=== PATIENT | male | born 1985 | race Caucasian/White ===

== ENCOUNTER 2017-01-15 07:40 | Emergency (ER) | payer BC ==
[2017-01-15] MEDS ORDERED: Ketorolac 60 MG/2 ML SDV IM ONE (07:50)
--- NOTE | 2017-01-15 07:50 | EDM.PDOC ---
ED HPI GENERAL MEDICAL PROBLEM - General Chief Complaint: Lower Extremity Injury/Pain Stated Complaint: LEFT FOOT PAIN Time Seen by Provider: 01/15/17 07:45 - History of Present Illness INITIAL COMMENTS - FREE TEXT/NARRATIVE: HISTORY AND PHYSICAL: History of present illness: The patient is a 31-year-old male with a history of seizure disorder and chronic pain secondary to participating in the [employer] and who follows with Dr. Reece at [facility] and presents today with complaints of pain to the dorsal and lateral aspect of his left foot that started yesterday after he rolled his foot playing catch with his child. The patient states he has not taken anything for the pain and presents for evaluation of same. The patient states he did not fall to the ground hitting his head pass out and has no head neck or back pain that is new or different. He has no proximal knee or hip pain on the left. He has no neurovascular changes in the foot and he says that the ankle does not hurt it is solely the foot Review of systems: As per history of present illness and below otherwise all systems reviewed and negative. Past medical history: As per history of present illness and as reviewed below otherwise noncontributory. Surgical history: As per history of present illness and as reviewed below otherwise noncontributory. Social history: No reported history of drug or alcohol abuse. Family history: As per history of present illness and as reviewed below otherwise noncontributory. Physical exam: Gen.: Well-developed well-nourished man who is nontoxic and speaking in full sentences. HEENT: Atraumatic, normocephalic, negative for conjunctival pallor or scleral icterus, mucous membranes moist, throat clear, neck supple, nontender, trachea midline. Lungs: Clear to auscultation, breath sounds equal bilaterally, chest nontender. Heart: S1S2, regular rate and rhythm no overt murmurs Pelvis: Stable nontender. Genitourinary: Deferred. Rectal: Deferred. Extremities: Atraumatic appearing throughout with full range of motion with only some mild soft tissue swelling noted at the dorsal aspect slightly lateral on the left foot. There is no discrete metatarsal tenderness nor is there any ankle tenderness or swelling or proximal bony tenderness deformities in the tib- fib knee or hip. Toes are intact and neurovascular is intact. There is no ecchymosis or redness appreciated., negative for cords or calf pain. Neurovascular unremarkable. Neuro: Awake, alert, oriented. Cranial nerves II through XII unremarkable. Cerebellum unremarkable. Motor and sensory unremarkable throughout. Exam nonfocal. Diagnostics: X-ray left foot Therapeutics: Toradol crutches ortho boot These note the patient has chronic pain and pain medication at home that he can take and I told him to add ibuprofen ice and elevate Impression: Navicular bone fracture of the left foot Definitive disposition and diagnosis as appropriate pending reevaluation and review of above. Left Feet Pain Score (Numeric/FACES): 7 - Related Data Allergies Allergy/AdvReac Type Severity Reaction Status Date / Time No Known Allergies Allergy Verified 01/15/17 07:47 Home Meds: Home Meds Divalproex Sodium [Depakote] 500 mg PO BIDMEALS 01/15/17 [History] Hydrocodone/Acetaminophen [Hydrocodon-Acetaminophen 5-325] 1 each PO ASDIRECTED PRN 01/15/17 [History] Review of Systems - Review of Systems Review Of Systems: ROS reveals no pertinent complaints other than HPI. ED EXAM, GENERAL - Physical Exam Exam: See Below (See dictation) Course - Vital Signs Last Recorded V/S: Last Vital Signs Temp 36.4 C 01/15/17 07:50 Pulse 82 01/15/17 07:50 Resp 15 01/15/17 07:50 BP 124/77 01/15/17 07:50 Pulse Ox 97 01/15/17 07:50 - Orders/Labs/Meds Orders: Active Orders 24 hr Category Date Time Status Foot Comp Min 3V Lt [CR] Stat Exams 01/15/17 07:50 Taken DME for Discharge [COMM] Stat Oth 01/15/17 09:36 Ordered Meds: Medications Discontinued Medications Generic Name Dose Route Start Last Admin Trade Name Freq PRN Reason Stop Dose Admin Ketorolac Tromethamine 60 mg 01/15/17 07:50 01/15/17 08:06 Toradol IM 01/15/17 07:51 60 mg ONETIME ONE Administration Departure - Departure Time of Disposition: 09:37 Disposition: Home, Self-Care 01 Condition: Good Clinical Impression: Fracture of navicular bone of foot Qualifiers: Encounter type: initial encounter Fracture type: closed Fracture alignment: nondisplaced Laterality: left Qualified Code(s): S92.255A - Nondisplaced fracture of navicular [scaphoid] of left foot, initial encounter for closed fracture - Discharge Information Forms: ED Department Discharge Additional Instructions: The following information is given to patients seen in the emergency department who are being discharged to home. This information is to outline your options for follow-up care. We provide all patients seen in our emergency department with a follow-up referral. The need for follow-up, as well as the timing and circumstances, are variable depending upon the specifics of your emergency department visit. If you don't have a primary care physician on staff, we will provide you with a referral. We always advise you to contact your personal physician following an emergency department visit to inform them of the circumstance of the visit and for follow-up with them and/or the need for any referrals to a consulting specialist. The emergency department will also refer you to a specialist when appropriate. This referral assures that you have the opportunity for followup care with a specialist. All of these measure are taken in an effort to provide you with optimal care, which includes your followup. Under all circumstances we always encourage you to contact your private physician who remains a resource for coordinating your care. When calling for followup care, please make the office aware that this follow-up is from your recent emergency room visit. If for any reason you are refused follow-up, please contact the [facility] emergency department at and ask to speak to the emergency department charge nurse. [address] [place] [address] Dr Stan Arias [address] [place] [address] [id number] [facility] Specialty clinic- Podiatry [address] [place] [id number] Fax: [phone] Please call and schedule a follow-up appointment with one of our podiatrists and use crutches and ortho boot as shown. Try not to weight-bear until you're followed up by the water jet operator. Use your pain medication as needed and add ibuprofen/Motrin for inflammation. Use ice and elevate the foot. Return here as needed and as discussed. Also schedule and follow-up with your primary Dr. Reece at [facility] - My Orders Last 24 Hours: My Active Orders 01/15/17 07:50 Foot Comp Min 3V Lt [CR] Stat 01/15/17 09:36 DME for Discharge [COMM] Stat - Assessment/Plan Last 24 Hours: My Active Orders 01/15/17 07:50 Foot Comp Min 3V Lt [CR] Stat 01/15/17 09:36 DME for Discharge [COMM] Stat
[2017-01-15 10:01] VITALS: BP 122/81
--- NOTE | 2017-01-15 17:43 | CR ---
EXAM DATE: 01/15/17 PATIENT'S AGE: 31 Patient: EZEKIEL CRENSHAW Facility: [place], [place] Site . Site : 1985 Study: XRay Extremity Left [id number]/16/2017 8:39:57 AM Ordering Physician: [facility] Weinstein Final Report: HISTORY: Trauma, stepped in hole. FINDINGS: Three views of the left foot demonstrates a traction spur on the left aspect of the calcaneus. There is a nondisplaced fracture seen through the medial aspect of the navicular. This does appear to involve the distal articular surface. Metatarsals appear intact. IMPRESSION: Nondisplaced intra-articular fracture of the medial navicular. Dictated by Sonal Fuentes MD @ 01/15/2017 9:05:09 AM Dictated by: Sonal Fuentes MD @ 01/15/2017 09:05:14 (Electronic Signature) Report Signed by Proxy. SATISH
== END 2017-01-15 09:56 | disposition home or self-care (01) ==
LOC: MW.ED 07:40
DX: S92.255A Nondisplaced fracture of navicular [scaphoid] of left foot, initial encounter for closed fracture (principal); G40.909 Epilepsy, unspecified, not intractable, without status epilepticus; X58.XXXA Exposure to other specified factors, initial encounter; Y93.61 Activity, american tackle football
CPT/HCPCS: 73630; 96372; 99283; J1885

== ENCOUNTER 2017-09-07 20:01 | Observation (INO) | payer BC ==
[2017-09-07] MEDS ORDERED: Sodium Chloride 0.9% 1,000 ML IV ONE (20:03)
[2017-09-07] MEDS ORDERED: Sodium Chloride 0.9% 2.5 ML Syringe FLUSH PRN (20:04)
[2017-09-07] MEDS ORDERED: Sodium Chloride 0.9% 10 ML Syringe FLUSH PRN (20:04)
[2017-09-07] MEDS ORDERED: LORazepam 2 MG/ML SDV IVPUSH ONE (20:04)
[2017-09-07] MEDS ORDERED: Valproate Sodium 500 MG/5 ML SDV IV ONE (20:10)
[2017-09-07] MEDS ORDERED: Diphtheria,Pertussis(Acell),Tetanus Vaccine 0.5 ML Syringe IM ONE (20:13)
--- NOTE | 2017-09-07 20:13 | EDM.PDOC ---
ED HPI GENERAL MEDICAL PROBLEM - General Chief Complaint: Neuro Symptoms/Deficits Stated Complaint: AMB Time Seen by Provider: 09/07/17 20:02 - History of Present Illness INITIAL COMMENTS - FREE TEXT/NARRATIVE: HISTORY AND PHYSICAL: History of present illness: Patient is a 32-year-old male who prevents EMS after having 4 seizures today each lasting less than a minute with a known history of seizure disorder. According to the friends at bedside the patient has not been able to access his medications because he broke up with his girlfriend and she has kept all of his meds and will not give them to him for the last 1 week. EMS witnessed one of these 4 seizures which lasted about 45 seconds and the patient has had trauma with these seizures because he has an injury to his for head. According to friends at bedside he chews tobacco he drinks only occasionally and did not drink today and had no systemic complaints earlier today. All procedures have occurred within a short period of time this evening. Patient did not complain of any nausea vomiting abdominal pain chest pain or shortness of breath before this all started. On arrival via EMS the patient has IV access but was not given any medications as he was very calm on their transfer but here he is somewhat agitated and post ictal. He is responding to voice and can be redirected area patient is moving all extremities and currently has no complaints. We do not know all of the patient's medications but the friend states that he does take Depakote and in the computer he has been here before with the Depakote history. His seizures are not new Review of systems: As per history of present illness and below otherwise all systems reviewed and negative. Past medical history: As per history of present illness and as reviewed below otherwise noncontributory. Surgical history: As per history of present illness and as reviewed below otherwise noncontributory. Social history: No reported history of drug or alcohol abuse. Family history: As per history of present illness and as reviewed below otherwise noncontributory. Physical exam: Gen.: Well developed well-nourished male who is intermittently agitated and can be redirected and response to voice. He is moving all extremities. There is no visible loss of bowel or bladder HEENT: normocephalic, pupils reactive, sclera are injected, there is a raised soft tissue swelling on the midforehead near the hairline with 2 superficial lacerations seen each measuring approximately 1.5 cm in their vertical. Tissue in this area is very contused. He is negative for conjunctival pallor or scleral icterus, mucous membranes moist, throat clear, neck supple, nontender, trachea midline. There are no palpable deformities midline step-offs or tenderness of the C-spine. There is bruising to the tongue bilaterally without any active bleeding in the teeth appear to be intact. Other than the for head injury there is no other soft tissue swelling of the facial bones. There is clotted nasal blood seen. Lungs: Clear to auscultation, breath sounds equal bilaterally, chest nontender. Heart: S1S2, regular, negative for clicks, rubs, or JVD. Abdomen: Soft, nondistended, nontender. Negative for masses or hepatosplenomegaly. Negative for costovertebral tenderness. Pelvis: Stable nontender. Genitourinary: Deferred. Rectal: Deferred. Extremities: Atraumatic, negative for cords or calf pain. Neurovascular unremarkable. No visible or palpable bony deformities defects or swelling and the patient has full range of motion Neuro: Awake, alert, but full exam is difficult to assess due to patient's lack of complete cooperation Motor and sensory unremarkable throughout. Exam nonfocal. Neck: There are no midline step-offs or defects appreciated on the thoracic or lumbar spine and no soft tissue swelling ecchymosis or trauma is visualized Diagnostics: CBC CMP EtOH level UA UDS magnesium level Depakote level CT of the head Therapeutics: Tdap, Ativan IV fluids Depakote wound care These note that the girlfriend has arrived in the ED and was somewhat disorderly in the waiting room and police were notified. According to the police conversation with the girlfriend the patient has not been taking his medications for quite some time, several months. She brings his Depakote prescription which was filled on May 13, 2017 and the initial dispense amount was 120 pills and there are 100 left. The patient is supposed to be taking 2 tablets twice a day. 2100: TESTING results were discussed with the patient and friends at bedside and the patient has yet to give a urine sample for UA and UDS. I've also discussed this case with our hospitalist Dr. Conteh who accepts the patient for observation admission as he truly only has the friends at bedside and no other family members. I will contact his mother who is out of state and just inform her of what's going on. Dr. Conteh said he will address prophylactic antibiotics on the floor once the patient is more awake for the fluid in the sinuses. Impression: Multiple seizures with medication noncompliance, fracture of sinuses status post blunt facial trauma stable Definitive disposition and diagnosis as appropriate pending reevaluation and review of above. 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) - Infectious Disease History Infectious Disease History: Reports: Chicken Pox - Past Surgical History Neurological Surgical History: Reports: Other (See Below) Other Neurological Surgeries/Procedures: Brain surgery for a bleed - titanium plates and screws intact Musculoskeletal Surgical History: Reports: None Social & Family History - Family History Family Medical History: Noncontributory - Tobacco Use Smoking Status *Q: Never Smoker Second Hand Smoke Exposure: No - Caffeine Use Caffeine Use: Reports: Tea - Alcohol Use Days Per Week of Alcohol Use: 0 - Recreational Drug Use Recreational Drug Use: No ED ROS GENERAL - Review of Systems Review Of Systems: ROS reveals no pertinent complaints other than HPI. ED EXAM, GENERAL - Physical Exam Exam: See Below (see dictation) Course - Vital Signs Last Recorded V/S: Last Vital Signs Temp 36.6 C 09/07/17 20:01 Pulse 123 H 09/07/17 20:01 Resp 26 H 09/07/17 20:01 BP 143/94 H 09/07/17 20:01 Pulse Ox 97 09/07/17 20:01 - Orders/Labs/Meds Orders: Active Orders 24 hr Category Date Time Status Cardiac Monitoring [RC] . DIRECTED Care 09/07/17 20:02 Active Communication Order [RC] STAT Care 09/07/17 20:03 Active Oxygen Therapy, ED [RC] ASDIRECTED Care 09/07/17 20:02 Active Pulse Oximetry [RC] ASDIRECTED Care 09/07/17 20:02 Active Vaccines to be Administered [RC] PER UNIT ROUTINE Care 09/07/17 20:13 Active Head wo Cont [CT] Stat Exams 09/07/17 20:03 Taken DRUG SCREEN, URINE [URCHEM] Stat Lab 09/07/17 20:03 Uncollected UA W/MICROSCOPIC [URIN] Stat Lab 09/07/17 20:03 Uncollected Sodium Chloride 0.9% [Normal Saline] 1,000 ml Med 09/07/17 20:03 Active IV STAT Sodium Chloride 0.9% [Saline Flush] Med 09/07/17 20:04 Active 10 ml FLUSH ASDIRECTED PRN Sodium Chloride 0.9% [Saline Flush] Med 09/07/17 20:04 Active 2.5 ml FLUSH ASDIRECTED PRN Valproate Sodium [Depacon] 1,000 mg Med 09/07/17 20:15 Active Sodium Chloride 0.9% [Normal Saline] 50 ml IV ONETIME Saline Lock Insert [OM.PC] Stat Oth 09/07/17 20:02 Ordered Medication Orders Sodium Chloride (Normal Saline) 1,000 mls @ 999 mls/hr IV STAT ONE Stop: 09/07/17 21:03 Last Admin: 09/07/17 20:39 Dose: 999 mls/hr Valproic Acid 1,000 mg/ Sodium (Chloride) 60 mls @ 60 mls/hr IV ONETIME ONE Stop: 09/07/17 21:14 Last Admin: 09/07/17 20:41 Dose: 60 mls/hr Sodium Chloride (Saline Flush) 10 ml FLUSH ASDIRECTED PRN PRN Reason: Keep Vein Open Last Admin: 09/07/17 20:12 Dose: 10 ml Sodium Chloride (Saline Flush) 2.5 ml FLUSH ASDIRECTED PRN PRN Reason: Keep Vein Open Last Admin: 09/07/17 20:12 Dose: 2.5 ml Labs: Laboratory Tests 09/07/17 09/07/17 Range/Units 20:16 20:16 WBC 19.70 H (4.0-11.0) K/uL RBC 5.23 (4.50-5.90) M/uL Hgb 15.5 (13.0-17.0) g/dL Hct 45.6 (38.0-50.0) % MCV 87.2 (80.0-98.0) fL MCH 29.6 (27.0-32.0) pg MCHC 34.0 (31.0-37.0) g/dL RDW Std Deviation 41.0 (28.0-62.0) fl RDW Coeff of Vincent 13 (11.0-15.0) % Plt Count 309 (150-400) K/uL MPV 9.60 (7.40-12.00) fL Add Manual Diff YES Neutrophils % (Manual) 86 H (48.0-80.0) % Lymphocytes % (Manual) 10 L (16.0-40.0) % Monocytes % (Manual) 3 (0.0-15.0) % Eosinophils % (Manual) 1 (0.0-7.0) % Nucleated RBC % 0.0 /100WBC Absolute Seg Neuts 16.9 H (1.4-5.7) Lymphocytes # (Manual) 2.0 (0.6-2.4) Monocytes # (Manual) 0.6 (0.0-0.8) Eosinophils # (Manual) 0.2 (0.0-0.7) Nucleated RBCs # 0 K/uL Sodium 139 (136-146) mmol/L Potassium 3.4 L (3.5-5.1) mmol/L Chloride 104 (98-110) mmol/L Carbon Dioxide 14 L (21-31) mmol/L BUN 9 (6.0-23.0) mg/dL Creatinine 1.3 (0.6-1.5) mg/dL Est Cr Clr Drug Dosing 90.37 mL/min Estimated GFR (MDRD) > 60.0 ml/min Glucose 200 H (60-110) mg/dL Calcium 9.3 (8.8-10.8) mg/dL Magnesium 1.9 (1.5-2.3) mEq/L Total Bilirubin 0.5 (0.1-1.5) mg/dL AST 43 H (5-40) IU/L ALT 50 (8-54) IU/L Alkaline Phosphatase 58 (40-150) Total Protein 7.8 (6.0-8.0) g/dL Albumin 4.6 (3.5-5.0) g/dL Globulin 3.2 (2.0-3.5) g/dL Albumin/Globulin Ratio 1.4 (1.3-2.8) Valproic Acid < 12.5 L (50-125) Ug/mL Ethyl Alcohol < 10.0 mg/dL Meds: Medications Generic Name Dose Route Start Last Admin Trade Name Freq PRN Reason Stop Dose Admin Sodium Chloride 1,000 mls @ 999 mls/hr 09/07/17 20:03 09/07/17 20:39 Normal Saline IV 09/07/17 21:03 999 mls/hr STAT ONE Administration Valproic Acid 1,000 mg/ Sodium 60 mls @ 60 mls/hr 09/07/17 20:15 09/07/17 20: 41 Chloride IV 09/07/17 21:14 60 mls/hr ONETIME ONE Administration Sodium Chloride 10 ml 09/07/17 20:04 09/07/17 20:12 Saline Flush FLUSH 10 ml ASDIRECTED PRN Administration Keep Vein Open Sodium Chloride 2.5 ml 09/07/17 20:04 09/07/17 20:12 Saline Flush FLUSH 2.5 ml ASDIRECTED PRN Administration Keep Vein Open Discontinued Medications Generic Name Dose Route Start Last Admin Trade Name Freq PRN Reason Stop Dose Admin Diphtheria/Tetanus/Acell Pertussis 0.5 ml 09/07/17 20:13 09/07/17 20:46 Adacel IM 09/07/17 20:14 0.5 ml .ONCE ONE Administration Lorazepam 2 mg 09/07/17 20:04 09/07/17 20:11 Ativan IVPUSH 09/07/17 20:05 2 mg ONETIME ONE Administration Valproic Acid 1,000 mg 09/07/17 20:10 Depacon IV 09/07/17 20:11 ONETIME ONE Departure - Departure Time of Disposition: 21:02 Disposition: Refer to Observation Condition: Good Clinical Impression: Seizures, Noncompliance with medication regimen Facial fracture Qualifiers: Encounter type: initial encounter Facial bone/location: other facial bone Fracture type: closed Laterality: right Qualified Code(s): S02.81XA - Fracture of other specified skull and facial bones, right side, initial encounter for closed fracture - Discharge Information Referrals: PCP,Unknown [Primary Care Provider] - Forms: ED Department Discharge - My Orders Last 24 Hours: My Active Orders 09/07/17 20:02 Cardiac Monitoring [RC] . DIRECTED Oxygen Therapy, ED [RC] ASDIRECTED Pulse Oximetry [RC] ASDIRECTED Saline Lock Insert [OM.PC] Stat 09/07/17 20:03 Communication Order [RC] STAT Head wo Cont [CT] Stat DRUG SCREEN, URINE [URCHEM] Stat UA W/MICROSCOPIC [URIN] Stat Sodium Chloride 0.9% [Normal Saline] 1,000 ml IV STAT 09/07/17 20:04 Sodium Chloride 0.9% [Saline Flush] 10 ml FLUSH ASDIRECTED PRN Sodium Chloride 0.9% [Saline Flush] 2.5 ml FLUSH ASDIRECTED PRN 09/07/17 20:13 Vaccines to be Administered [RC] PER UNIT ROUTINE 09/07/17 20:15 Valproate Sodium [Depacon] 1,000 mg Sodium Chloride 0.9% [Normal Saline] 50 ml IV ONETIME - Assessment/Plan Last 24 Hours: My Active Orders 09/07/17 20:02 Cardiac Monitoring [RC] . DIRECTED Oxygen Therapy, ED [RC] ASDIRECTED Pulse Oximetry [RC] ASDIRECTED Saline Lock Insert [OM.PC] Stat 09/07/17 20:03 Communication Order [RC] STAT Head wo Cont [CT] Stat DRUG SCREEN, URINE [URCHEM] Stat UA W/MICROSCOPIC [URIN] Stat Sodium Chloride 0.9% [Normal Saline] 1,000 ml IV STAT 09/07/17 20:04 Sodium Chloride 0.9% [Saline Flush] 10 ml FLUSH ASDIRECTED PRN Sodium Chloride 0.9% [Saline Flush] 2.5 ml FLUSH ASDIRECTED PRN 09/07/17 20:13 Vaccines to be Administered [RC] PER UNIT ROUTINE 09/07/17 20:15 Valproate Sodium [Depacon] 1,000 mg Sodium Chloride 0.9% [Normal Saline] 50 ml IV ONETIME
[2017-09-07] MEDS ORDERED: Bacitracin Oint 1 GM U/D Packet TOP ONE (20:14)
[2017-09-07 20:44] LABS: CHLORIDE,CL 104 mmol/L (98-110); SODIUM,NA 139 mmol/L (136-146)
[2017-09-07] MEDS ORDERED: LORazepam 2 MG/ML SDV IVPUSH PRN (22:20)
[2017-09-07] MEDS ORDERED: Acetaminophen 325 MG Tab PO PRN (22:20)
[2017-09-07] MEDS: Lactated Ringers 1,000 ML IV SCH (23:05)
[2017-09-08] MEDS: Lactated Ringers 1,000 ML IV SCH (06:14)
[2017-09-08 07:39] VITALS: BP 134/77
--- NOTE | 2017-09-08 09:42 | CT ---
EXAM DATE: 09/07/17 PATIENT'S AGE: 32 Patient: EZEKIEL CRENSHAW Facility: [place], [place] Site . Site : 1985 Study: CT Head [id number]/6/2018 8:30:12 PM Ordering Physician: [facility] Weinstein Final Report: INDICATION: Change in mental status, confusion. Right frontal scalp edema TECHNIQUE: CT head without contrast. COMPARISON: None FINDINGS: CSF spaces: Within normal limits for age. Brain parenchyma: The mccord-white differentiation is normal. No sign of mass, hemorrhage, or midline shift. Skull base and calvarium: The visualized paranasal sinuses and mastoid air cells demonstrate no acute or significant findings. The visualized orbits are grossly unremarkable. The tear involving anterior and posterior wall of the right frontal sinus. Right frontal scalp hematoma. Partial opacification of the right frontal and ethmoid air cells. Air-fluid levels identified in both maxillary sinuses. IMPRESSION: Fractures involving the anterior and posterior polanco of the right frontal sinus with right frontal scalp hematoma. Partial opacification of the right frontal and ethmoid air cells with air-fluid levels in both maxillary sinuses. No evidence of acute intracranial trauma. Dictated by Griffin Tamez MD @ 09/07/2017 8:50:25 PM Dictated by: Griffin Tamez MD @ 09/07/2017 20:50:32 ----- ADDENDUM ----- Conformation of report received on 09/07/2017 at 8:[address] Figueroa: Dictated by Griffin Tamez MD @ Sep 07 2017 8:57PM (Electronic Signature) Report Signed by Proxy. SATISH
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
== END 2017-09-08 11:00 | disposition home or self-care (01) ==
LOC: MW.ED 20:01 → MW.ICU 21:04
PROVIDERS: ADMIT Family Medicine; ATTEND Family Medicine
DX: G40.909 Epilepsy, unspecified, not intractable, without status epilepticus (principal); E87.6 Hypokalemia; D72.829 Elevated white blood cell count, unspecified; R74.0 Nonspecific elevation of levels of transaminase and lactic acid dehydrogenase [LDH]; W19.XXXA Unspecified fall, initial encounter; S01.81XA Laceration without foreign body of other part of head, initial encounter; S02.19XA Other fracture of base of skull, initial encounter for closed fracture; Z91.14 Patient's other noncompliance with medication regimen
CPT/HCPCS: 36415; 70450; 80048; 80053; 80164; 80305; 81001; 83735; 85025; 90471; 90715; 96361; 96365; 96375; 99285; G0378; G0480; J2060; J7040; J7050; J7120; 99284